=== PATIENT | female | born 1945 | race Caucasian/White ===

== ENCOUNTER 2017-02-07 07:57 | Day surgery (SDC) | payer MEDICARE ==
[2017-02-07] VITALS (8 sets, daily range): BP systolic 92–162; BP diastolic 46–84; PULSE 56–75; RESP 16–20; TEMP 97.6–97.9; O2SAT 94–98
[~2017-02-07] VITALS: Ht 152.4 cm; Wt 61.8 kg
[~2017-02-07 07:57] MED LIST: ASPI81TA82 PO; BUSP10 PO; METO50TA PO; PRAV10 PO; Z.0.WALKERFOLD; Z.0.WALKERFRONT
[2017-02-07] MEDS ORDERED: ASPI-110 PO (08:22)
[2017-02-07] MEDS ORDERED: BUSP15TA PO (08:22)
[2017-02-07] MEDS ORDERED: PRAV10TA PO (08:22)
[2017-02-07] MEDS ORDERED: PRESCAP5 PO (08:22)
[2017-02-07] MEDS ORDERED: METO-309 PO (08:22)
[2017-02-07] MEDS ORDERED: SODIUM CHLOR 0.9% 1000 ML IV SCH (08:45)
[2017-02-07] MEDS ORDERED: SODIUM CHLORIDE 5 ML FLUSH PRN IVF (08:45)
[2017-02-07] MEDS ORDERED: fentaNYL CITRATE 250 MCG/5 ML AMP ONE (08:47)
[2017-02-07] MEDS ORDERED: MIDAZOLAM HCL 5 MG/5 ML VIAL ONE (08:47)
[2017-02-07] MEDS ORDERED: SODIUM CHLORIDE 5 ML FLUSH BID IVF SCH (09:00)
[2017-02-07] MEDS ORDERED: LIDOCAINE 1%/EPINEPHrine 1:100,000 SOLN 20 ML VIAL ONE (09:33)
[2017-02-07] MEDS ORDERED: THROMBIN (TOPICAL) 5,000 UNIT VIAL ONE (10:08)
[2017-02-07] MEDS ORDERED: GELFOAM SIZE 100 OTHER ONE (11:27)
--- NOTE | 2017-02-07 11:40 | RADRPT ---
EXAM DATE/TIME: 02/07/2017 10:22 [facility] COMPARISON: No previous studies available for comparison. INDICATIONS : Right lung mass; biopsy. SEDATION TIME: 45 minutes BIOPSY SITE: Right lung MEDICATION(S): 1.) 3 mg midazolam (Versed) IV 2.) 150 mcg fentanyl (Sublimaze) FRIEND OF THE COURT(s): Joanna Romero RN DEVICE(S): 1.) 18 gauge Core biopsy needle 2.) 20 gauge Coleman blunt needle 3.) Gelfoam MEDICAL HISTORY : Carcinoma, not otherwise specified. SURGICAL HISTORY : None. ENCOUNTER: Initial ACUITY: 1 day PAIN SCORE: 0/10 LOCATION: Right chest A total of three core specimen(s) were obtained and sent to the laboratory for pathologic evaluation. PROCEDURE: 1. CT guided lung biopsy. 2. Conscious sedation with continuous EKG and oximetry monitoring. 3. EKG and oximetry remained stable throughout the procedure. Prior to the procedure informed consent was obtained. Any appropriate prior imaging studies were rev iewed. Using automated exposure control and adjustment of the mA and/or kV according to patient size, radiation dose was kept as low as reasonably achievable to obtain optimal diagnostic quality images. The site was prepped in a sterile fashion. Full sterile technique was used, including cap, mask, nita rile gloves and gown and a large sterile sheet. Hand hygiene and 2% chlorhexidine and/or betadine/al cohol prep was utilized per protocol for cutaneous antisepsis. The skin and subcutaneous tissues wer e infiltrated with local anesthetic solution. Under CT guidance an 18 gauge blunt needle was placed down to the nodule in the right upper lobe from a prone posterior approach. 3 cores were obtained Tract was embolized with Gelfoam and thrombin. Follow-up CT scan reveals no pneumothorax. Conscious sedation was performed with the prescribed dosages and duration as above in the presence of an independent trained radiology nurse to assist in the monitoring of the patient. EKG and oximetry remained stable throughout the procedure. The patient tolerated the procedure well and there were no complications. The patient was sent to Radiology Outpatient Unit in stable condition. CONCLUSION: Uncomplicated CT guided biopsy. Preliminary pathology interpretation is a cellular specimen. Juwan Roque MD FACR on February 07, 2017 at 11:35 Board Certified Radiologist. This report was verified electronically.
--- NOTE | 2017-02-07 13:00 | RADRPT ---
EXAM DATE/TIME: 02/07/2017 11:45 [facility] COMPARISON: CT NEEDLE BIOPSY LUNG, RIGHT, February 07, 2017, 10:22. INDICATIONS : Post right lung biopsy. MEDICAL HISTORY : None. SURGICAL HISTORY : CABG. ENCOUNTER: Initial ACUITY: 1 day PAIN SCORE: 0/10 LOCATION: Right chest FINDINGS: A single frontal expiratory view of the chest was performed. The lungs are symmetrically aerated and clear. No evidence of pneumothorax. Mediastinal structures are in the midline. The cardio-mediastinal contours and bronchopulmonary markings are unremarkable for an expiratory exam . The patient is status post sternotomy and surgical hardware in the cervical spine. CONCLUSION: No pneumothorax is seen. Adam Cullen MD on February 07, 2017 at 12:58 Board Certified Radiologist. This report was verified electronically.
== END 2017-02-07 14:50 | disposition home or self-care (01) ==
LOC: HRAD 07:57 → HRIP 08:01 → HRAD 14:50
PROVIDERS: ATTEND Specialist
DX: R91.8 Other nonspecific abnormal finding of lung field (principal); Z95.1 Presence of aortocoronary bypass graft; Z88.8 Allergy status to other drugs, medicaments and biological substances
CPT/HCPCS: 32405; 71010; 77012; 88305; 88333; J2250; J3010; J7030

== ENCOUNTER 2017-03-04 06:54 | Day surgery (SDC) | payer MEDICARE ==
[~2017-03-04] VITALS: Ht 153.7 cm; Wt 61.8 kg
[~2017-03-04 06:54] MED LIST changes: +ASPI-110 PO; -ASPI81TA82 PO; -BUSP10 PO; +BUSP15TA PO; +METO-309 PO; -METO50TA PO; -PRAV10 PO; +PRAV10TA PO; +PRESCAP5 PO; -Z.0.WALKERFOLD; -Z.0.WALKERFRONT
[2017-03-04 07:11] VITALS: BP 176/63; PULSE 50; RESP 20; TEMP 97.9; O2SAT 98
[2017-03-04] MEDS ORDERED: SODIUM CHLOR 0.9% 1000 ML INJ 1,000 ML IV SCH (07:30)
[2017-03-04] MEDS ORDERED: LIDOCAINE 1%/EPINEPHrine 1:100,000 SOLN 20 ML VIAL ONE (07:42)
[2017-03-04] MEDS ORDERED: BUPIVACAINE HCL PF 0.75% 10 ML VIAL ONE (08:18)
[2017-03-04 08:40] VITALS: BP 171/79; PULSE 57; RESP 18; TEMP 97.4; O2SAT 97
[2017-03-04 08:55] VITALS: BP 139/73; PULSE 55; RESP 18; O2SAT 96
[2017-03-04 09:10] VITALS: BP 136/93; PULSE 58; RESP 18; O2SAT 95
--- NOTE | 2017-03-04 10:18 | RADRPT ---
EXAM DATE/TIME: 03/04/2017 08:09 [facility] COMPARISON: No previous studies available for comparison. INDICATIONS : Right anterior thigh sarcoma. History of lung cancer. SEDATION TIME: 15 minutes BIOPSY SITE: Right Thigh MEDICATION(S): 1.) 50 mcg fentanyl (Sublimaze) IV DEVICE(S): 1.) 18 gauge BioPince needle MEDICAL HISTORY : Carcinoma, lung. SURGICAL HISTORY : None. ENCOUNTER: Initial ACUITY: 1 day PAIN SCORE: 0/10 LOCATION: Right thigh A total of one core specimen(s) were obtained and sent to the laboratory for pathologic evaluation. PROCEDURE: 1. CT guided soft tissue, right biopsy. Prior to the procedure informed consent was obtained. Any appropriate prior imaging studies were rev iewed. Using automated exposure control and adjustment of the mA and/or kV according to patient size, radiat ion dose was kept as low as reasonably achievable to obtain optimal diagnostic quality images. The site was prepped in a sterile fashion. Full sterile technique was used, including cap, mask, nita rile gloves and gown and a large sterile sheet. Hand hygiene and 2% chlorhexidine and/or betadine/al cohol prep was utilized per protocol for cutaneous antisepsis. The skin and subcutaneous tissues wer e infiltrated with local anesthetic solution. With CT guidance the previously identified target was localized. Biopsy was performed using the presc ribed needle as above. Adequate hemostasis was obtained with compression at the puncture site. Follow-up CT scan reveals no hemorrhage. The patient tolerated the procedure well and there were no complications. The patient was returned to the Radiology Outpatient Unit in stable condition. CONCLUSION: Uncomplicated CT guided biopsy. Pathology is pending. Juwan Roque MD FACR on March 04, 2017 at 10:16 Board Certified Radiologist. This report was verified electronically.
== END 2017-03-04 09:31 | disposition home or self-care (01) ==
LOC: HRIP 06:54 → HRAD 06:54
PROVIDERS: ATTEND Specialist
DX: C49.21 Malignant neoplasm of connective and soft tissue of right lower limb, including hip (principal); Z85.118 Personal history of other malignant neoplasm of bronchus and lung
CPT/HCPCS: 20206; 77012; 88307; 88333; 99152; J3010; J7030; 88305